=== PATIENT | female | born 1950 | race Caucasian/White ===

== ENCOUNTER 2020-07-18 11:57 | Inpatient (IN) ==
[2020-07-18] MEDS ORDERED: Isovue-370 500 ML BOTTLE IVP ONE (12:10)
[2020-07-18] MEDS ORDERED: Morphine Sulfate 2 MG/ML SYRINGE IVP STA (12:12)
[2020-07-18 12:31] LABS: Basophils % 0.1 %; Eosinophils % 0.1 %; Hematocrit 24.2 % (35.3-44.9); Hemoglobin 7.5 g/dL (11.5-15.4); Immature Granulocytes % 0.5 % (0-4); Lymphocytes # 0.6 K/mcL (0.6-4.6); Lymphocytes % 6.3 %; Mean Corpuscular Hemoglobin 21.4 pg (28.0-33.3); Mean Corpuscular Volume 69.1 fL (83.0-100.0); Mean Platelet Volume 8.8 fL (9.4-12.4); Monocytes # 1.5 K/mcL (0.0-1.3); Monocytes % 17.5 %; Neutrophils # 6.6 K/mcL (1.6-8.9); Nucleated Red Blood Cells 1.2 /100 WBC (0); Platelet Count 309 K/mcL (140-400); Red Cell Distribution Width 18.8 % (11.5-14.5); Segmented Neutrophils % 75.5 %; White Blood Count 8.7 K/mcL (4.3-11.1)
[2020-07-18 12:54] LABS: Dohle Bodies Present (Not Present); Platelet Estimate Normal (Normal); Toxic Granulation Present (Not Present)
[2020-07-18 12:57] LABS: Alanine Aminotransferase 11 Units/L (7-52); Albumin 2.8 g/dL (3.5-5.7); Albumin/Globulin Ratio 0.8 (1.1-2.2); Alkaline Phosphatase 133 Units/L (34-104); Amylase 13 Units/L (29-103); Aspartate Amino Transferase 21 Units/L (13-39); BUN/Creatinine Ratio 75 (6-26); Bilirubin,Direct 0.4 mg/dL (0.0-0.2); Bilirubin,Indirect 0.5 mg/dL (0.0-1.0); Bilirubin,Total 0.9 mg/dL (0.3-1.0); Blood Urea Nitrogen 40 mg/dL (8-23); Calcium 9.1 mg/dL (8.6-10.3); Carbon Dioxide 25 mEq/L (23-29); Chloride 96 mEq/L (98-107); Globulin 3.7 g/dL (2.4-3.5); Glucose 115 mg/dL (70-105); Lipase 3 Units/L (11-82); Osmolality,Calculated 283 (280-300); Potassium 3.7 mEq/L (3.5-5.1); Sodium 131 mEq/L (136-145); Total Protein 6.5 g/dL (6.4-8.9); Troponin I < 0.03 ng/mL (< 0.04); eGFR For African Americans > 60 (> 60); eGFR For Non-African Americans > 60 (> 60)
[2020-07-18] MEDS ORDERED: 0.9 % Sodium Chloride 1,000 ML IV ONE (13:45)
[2020-07-18 14:07] LABS: Bacteria,Urine Moderate per hpf (None-Few); Bilirubin,Urine Negative (Negative); Blood,Urine Trace (Negative); Clarity,Urine Turbid (Clear); Color,Urine Yellow (Yellow); Glucose,Urine (UA) Normal (Normal); Hyaline Casts,Urine Moderate per lpf (None Seen); Ketones,Urine Trace mg/dL (Negative); Leukocyte Esterase,Urine Large (Negative); Mucus,Urine Few per lpf (None-Few); Nitrite,Urine Positive (Negative); Protein,Urine 50 mg/dL (Neg-Trace); Specific Gravity,Urine > 1.030 (1.010-1.025); Squamous Epithelial Cell,Urine Few per hpf (None-Few); Urobilinogen,Urine Normal (Normal); WBC,Urine 15-30 per hpf (0-3)
[2020-07-18] MEDS ORDERED: 0.9 % Sodium Chloride 1,000 ML IVC ONE (14:29)
[2020-07-18] MEDS ORDERED: *HR* HYDROmorphone (PF) 1 MG/ML SYRINGE IVP ONE (14:30)
[2020-07-18] MEDS ORDERED: cefTRIAXone 1,000 MG in Water for inj. (sterile) 10 ML IVP ONE (14:43)
[2020-07-18] MEDS ORDERED: Naloxone 0.4 MG/ML INJ IVP PRN (15:41)
[2020-07-18] MEDS ORDERED: *HR* HYDROmorphone 2 MG/ML SYRINGE IVP ONE (15:44)
[2020-07-18] MEDS ORDERED: Ipratropium/Albuterol Neb 3 ML IH PRN (15:51)
[2020-07-18] MEDS ORDERED: Acetaminophen 325 MG TABLET PO PRN (15:51)
[2020-07-18] MEDS ORDERED: Ringers Solution, Lactated 1,000 ML IVC SCH (16:00)
[2020-07-18] MEDS ORDERED: Dextrose Gel 15 GM/37.5 ML TUBE PO PRN ×2 (16:52)
[2020-07-18] MEDS ORDERED: D5% in Water 1,000 ML IVC PRN (16:52)
[2020-07-18] MEDS ORDERED: *HR* Dextrose 50 % in Water (Vial) 50 ML VIAL IVP PRN (16:52)
[2020-07-18] MEDS ORDERED: Iron Sucrose Complex 400 MG in 0.9 % Sodium Chloride 250 ML IVPB ONE (17:21)
[2020-07-18] MEDS: Budesonide/Formoterol 160/4.5 1 PUFF INH IH SCH (20:12)
[2020-07-18] MEDS: *HR* OxyCODONE Immed Rel 5 MG TABLET PO PRN (20:35)
[2020-07-18 21:47] LABS: Estimated Average Glucose 137 mg/dl; Hemoglobin A1C 6.4 %
[2020-07-19] MEDS ORDERED: DilTIAZem 50 MG/50 ML IV.SOLN IVC SCH (02:15)
[2020-07-19] MEDS ORDERED: 0.9 % Sodium Chloride 1,000 ML IVC SCH ×2 (02:15)
[2020-07-19] MEDS ORDERED: *HR* Heparin 5,000 UNIT/ML VIAL IVP PRN ×2 (02:29)
[2020-07-19] MEDS ORDERED: *HR* Heparin 5,000 UNIT/ML VIAL IVP ONE (02:29)
[2020-07-19] MEDS ORDERED: Heparin 25,000UNIT/250ML 1/2NS 25,000 UNIT/250 ML IV.SOLN IVC SCH (02:30)
[2020-07-19 03:17] LABS: Hematocrit 22.1 % (35.3-44.9); Hemoglobin 6.9 g/dL (11.5-15.4); Mean Corpuscular HGB Conc 31.2 g/dL (31.6-35.5); Mean Corpuscular Hemoglobin 21.9 pg (28.0-33.3); Mean Corpuscular Volume 70.2 fL (83.0-100.0); Mean Platelet Volume 9.1 fL (9.4-12.4); Nucleated Red Blood Cells 0.6 /100 WBC (0); Platelet Count 282 K/mcL (140-400); Red Blood Count 3.15 M/mcL (3.82-4.97); White Blood Count 7.1 K/mcL (4.3-11.1)
[2020-07-19 03:26] LABS: INR 1.6; Prothrombin Time 18.5 Seconds (9.4-12.1)
[2020-07-19 03:29] LABS: Heparin anti-factor XA UFH < 0.04 IU/mL (0.30-0.70)
[2020-07-19] MEDS: Ondansetron 4 MG/2 ML VIAL IVP PRN (03:30)
[2020-07-19 03:36] LABS: Lymphocytes # 0.4 K/mcL (0.6-4.6); Monocytes # 0.3 K/mcL (0.0-1.3)
[2020-07-19 03:37] LABS: Anisocytosis 1+ (Not Present); Hypochromasia Present (Not Present); Platelet Estimate Normal (Normal); Poikilocytosis 1+ (Not Present); Toxic Granulation Present (Not Present)
[2020-07-19 03:39] LABS: Alanine Aminotransferase 9 Units/L (7-52); Albumin 2.5 g/dL (3.5-5.7); Albumin/Globulin Ratio 0.7 (1.1-2.2); Alkaline Phosphatase 93 Units/L (34-104); Aspartate Amino Transferase 18 Units/L (13-39); BUN/Creatinine Ratio 57 (6-26); Bilirubin,Total 0.6 mg/dL (0.3-1.0); Blood Urea Nitrogen 27 mg/dL (8-23); Calcium 8.6 mg/dL (8.6-10.3); Carbon Dioxide 21 mEq/L (23-29); Chloride 103 mEq/L (98-107); Globulin 3.4 g/dL (2.4-3.5); Glucose 86 mg/dL (70-105); Iron 306 mcg/dL (50-170); Magnesium 1.9 mg/dL (1.6-2.6); Osmolality,Calculated 284 (280-300); Potassium 3.4 mEq/L (3.5-5.1); Sodium 135 mEq/L (136-145); Total Protein 5.9 g/dL (6.4-8.9); eGFR For African Americans > 60 (> 60); eGFR For Non-African Americans > 60 (> 60)
[2020-07-19 03:56] LABS: Ferritin 549 ng/mL (10-120)
[2020-07-19 04:03] LABS: Vitamin B12 > 1500 pg/mL (250-1100)
[2020-07-19 04:44] LABS: % Iron Saturation 182 % (15-50); Transferrin 120 mg/dL (203-362)
[2020-07-19] MEDS ORDERED: Potassium Phosphate 44 MEQ in 0.9 % Sodium Chloride 250 ML IVPB ONE (07:00)
[2020-07-19] MEDS ORDERED: 0.9 % Sodium Chloride 250 ML ONE (07:23)
[2020-07-19] MEDS: Multivit/Ca/Min/Fe/FA 1 TAB TABLET PO SCH ×2 (07:54→08:10)
[2020-07-19] MEDS: Budesonide/Formoterol 160/4.5 1 PUFF INH IH SCH ×2 (09:30→19:31)
[2020-07-19] MEDS: *HR* OxyCODONE Immed Rel 5 MG TABLET PO PRN ×2 (10:58→20:00)
[2020-07-19] MEDS: *HR* HYDROmorphone 2 MG/ML SYRINGE IVP PRN ×3 (14:27→23:00)
[2020-07-19] MEDS ORDERED: Glycerin RECTAL Suppository RC ONE (18:06)
[2020-07-19 19:59] LABS: Hematocrit 23.6 % (35.3-44.9); Hemoglobin 7.4 g/dL (11.5-15.4)
[2020-07-19 20:23] LABS: Lactate Dehydrogenase 234 Units/L (140-271)
[2020-07-19] MEDS: polyethylene glycoL 3350 17 GM POWD.PACK PO SCH (20:34)
[2020-07-19] MEDS: cefTRIAXone 1,000 MG in Water for inj. (sterile) 10 ML IVP SCH (21:10)
[2020-07-20] MEDS: *HR* LORazepam 0.5 MG TABLET PO PRN ×3 (00:53→19:34)
[2020-07-20] MEDS: *HR* OxyCODONE Immed Rel 5 MG TABLET PO PRN ×3 (00:53→09:36)
[2020-07-20] MEDS: Melatonin 3 MG TABLET PO PRN ×2 (00:53→19:34)
[2020-07-20] MEDS: Ondansetron 4 MG/2 ML VIAL IVP PRN ×3 (00:54→21:45)
[2020-07-20] MEDS: *HR* HYDROmorphone 2 MG/ML SYRINGE IVP PRN ×3 (02:46→11:47)
[2020-07-20 04:33] LABS: Hematocrit 23.3 % (35.3-44.9); Hemoglobin 7.3 g/dL (11.5-15.4); Mean Corpuscular HGB Conc 31.3 g/dL (31.6-35.5); Mean Corpuscular Hemoglobin 22.8 pg (28.0-33.3); Mean Corpuscular Volume 72.8 fL (83.0-100.0); Mean Platelet Volume 9.2 fL (9.4-12.4); Nucleated Red Blood Cells 0.8 /100 WBC (0); Platelet Count 166 K/mcL (140-400); Red Cell Distribution Width 20.9 % (11.5-14.5)
[2020-07-20 04:53] LABS: Alanine Aminotransferase 11 Units/L (7-52); Albumin 2.5 g/dL (3.5-5.7); Albumin/Globulin Ratio 0.8 (1.1-2.2); Alkaline Phosphatase 119 Units/L (34-104); Aspartate Amino Transferase 21 Units/L (13-39); BUN/Creatinine Ratio 42 (6-26); Bilirubin,Total 1.1 mg/dL (0.3-1.0); Blood Urea Nitrogen 18 mg/dL (8-23); Calcium 8.9 mg/dL (8.6-10.3); Carbon Dioxide 23 mEq/L (23-29); Chloride 101 mEq/L (98-107); Globulin 3.1 g/dL (2.4-3.5); Glucose 106 mg/dL (70-105); Magnesium 1.7 mg/dL (1.6-2.6); Osmolality,Calculated 278 (280-300); Phosphorous 1.9 mg/dL (2.7-4.5); Potassium 3.3 mEq/L (3.5-5.1); Sodium 133 mEq/L (136-145); Total Protein 5.6 g/dL (6.4-8.9); eGFR For African Americans > 60 (> 60); eGFR For Non-African Americans > 60 (> 60)
[2020-07-20 04:56] LABS: Anisocytosis 3+ (Not Present); Microcytosis Present (Not Present); Monocytes # 1.6 K/mcL (0.0-1.3); Neutrophils # 9.9 K/mcL (1.6-8.9); Platelet Estimate Normal (Normal); Toxic Granulation Present (Not Present)
[2020-07-20 04:57] LABS: Polychromasia 1+ (Not Present)
[2020-07-20] MEDS: Budesonide/Formoterol 160/4.5 1 PUFF INH IH SCH ×2 (07:50→20:10)
[2020-07-20] MEDS: Multivit/Ca/Min/Fe/FA 1 TAB TABLET PO SCH (08:14)
[2020-07-20] MEDS: cefTRIAXone 1,000 MG in Water for inj. (sterile) 10 ML IVP SCH (08:15)
[2020-07-20] MEDS: polyethylene glycoL 3350 17 GM POWD.PACK PO SCH ×2 (08:16→19:42)
[2020-07-20] MEDS ORDERED: Potassium Phosphate 44 MEQ in 0.9 % Sodium Chloride 250 ML IVPB ONE (08:54)
[2020-07-20] MEDS ORDERED: *HR* HYDROmorphone 2 MG/ML SYRINGE IVP PRN (12:42)
[2020-07-20] MEDS ORDERED: *HR* Metoprolol 5 MG/5 ML VIAL IVP ONE (18:38)
[2020-07-20] MEDS ORDERED: traZODone 50 MG TABLET PO PRN (18:43)
[2020-07-20] MEDS ORDERED: 0.9 % Sodium Chloride 1,000 ML IVC ONE (22:59)
[2020-07-20] MEDS ORDERED: Albumin Human 5% 12.5 GM/250 ML IV.SOLN IVPB ONE (23:00)
[2020-07-21] MEDS: DilTIAZem 50 MG/50 ML IV.SOLN IVC SCH ×3 (03:22→10:50)
[2020-07-21] MEDS ORDERED: *HR* Metoprolol 5 MG/5 ML VIAL IVP ONE ×2 (04:52→14:56)
[2020-07-21 05:39] LABS: Hematocrit 25.5 % (35.3-44.9); Hemoglobin 7.8 g/dL (11.5-15.4); Mean Corpuscular HGB Conc 30.6 g/dL (31.6-35.5); Mean Corpuscular Hemoglobin 22.7 pg (28.0-33.3); Mean Corpuscular Volume 74.3 fL (83.0-100.0); Mean Platelet Volume 9.3 fL (9.4-12.4); Nucleated Red Blood Cells 1.7 /100 WBC (0); Platelet Count 215 K/mcL (140-400); Red Blood Count 3.43 M/mcL (3.82-4.97); Red Cell Distribution Width 21.4 % (11.5-14.5); White Blood Count 16.2 K/mcL (4.3-11.1)
[2020-07-21 06:00] LABS: Alanine Aminotransferase 11 Units/L (7-52); Albumin 2.7 g/dL (3.5-5.7); Albumin/Globulin Ratio 0.8 (1.1-2.2); Alkaline Phosphatase 116 Units/L (34-104); Aspartate Amino Transferase 21 Units/L (13-39); BUN/Creatinine Ratio 55 (6-26); Blood Urea Nitrogen 23 mg/dL (8-23); Calcium 8.7 mg/dL (8.6-10.3); Carbon Dioxide 24 mEq/L (23-29); Chloride 101 mEq/L (98-107); Globulin 3.2 g/dL (2.4-3.5); Glucose 126 mg/dL (70-105); Osmolality,Calculated 285 (280-300); Phosphorous 2.1 mg/dL (2.7-4.5); Potassium 3.5 mEq/L (3.5-5.1); Sodium 135 mEq/L (136-145); Total Protein 5.9 g/dL (6.4-8.9); eGFR For African Americans > 60 (> 60); eGFR For Non-African Americans > 60 (> 60)
[2020-07-21 06:14] LABS: Polychromasia 2+ (Not Present)
[2020-07-21 06:16] LABS: Anisocytosis 1+ (Not Present); Lymphocytes # 1.3 K/mcL (0.6-4.6); Neutrophils # 12.3 K/mcL (1.6-8.9)
[2020-07-21 06:17] LABS: Hypochromasia Present (Not Present); Platelet Estimate Normal (Normal); Poikilocytosis 1+ (Not Present); Toxic Granulation Present (Not Present)
[2020-07-21 07:53] LABS: ABG Base Excess 1 mEq/L (-2 to 3); ABG HCO3 24 mEq/L (21-27); ABG Oxygen Saturation 94 % (95-98); ABG PCO2 29 mmHg (35-45); ABG PH 7.52 pH Units (7.32-7.45); ABG PO2 60 mmHg (85-104); ABG TCO2 25 mEq/L (20-26)
[2020-07-21] MEDS ORDERED: Isovue-370 500 ML BOTTLE IVP ONE (07:55)
[2020-07-21] MEDS ORDERED: Potassium Phosphate 44 MEQ in 0.9 % Sodium Chloride 250 ML IVPB ONE (07:59)
[2020-07-21] MEDS ORDERED: *HR* Digoxin 0.25 MG TABLET PO STA ×2 (08:29)
[2020-07-21] MEDS ORDERED: *HR* Digoxin 0.125 MG TABLET PO STA (08:36)
[2020-07-21] MEDS ORDERED: Piperacillin/Tazobactam 3.375 GM in 0.9 % Sodium Chloride Mini Bag 100 ML IVPB ONE (08:40)
[2020-07-21] MEDS: Budesonide/Formoterol 160/4.5 1 PUFF INH IH SCH ×2 (09:34→19:38)
[2020-07-21] MEDS: Ondansetron 4 MG/2 ML VIAL IVP PRN (11:48)
[2020-07-21] MEDS ORDERED: *HR* FentaNYL PATCH 12 MCG PATCH TD SCH (12:00)
[2020-07-21] MEDS: polyethylene glycoL 3350 17 GM POWD.PACK PO SCH ×3 (12:50→21:24)
[2020-07-21] MEDS: Multivit/Ca/Min/Fe/FA 1 TAB TABLET PO SCH (12:50)
[2020-07-21] MEDS ORDERED: *HR* Digoxin 0.25 MG TABLET PO SCH (14:00)
[2020-07-21] MEDS ORDERED: *HR* Digoxin 0.5 MG/2 ML AMPUL IVP ONE ×2 (14:55→21:00)
[2020-07-21] MEDS: *HR* LORazepam 2 MG/ML VIAL IVP PRN (15:28)
[2020-07-21] MEDS: Ondansetron 4 MG/2 ML VIAL IVP SCH ×2 (15:51→16:02)
[2020-07-21] MEDS: Piperacillin/Tazobactam 3.375 GM in 0.9 % Sodium Chloride Mini Bag 100 ML IVPB SCH (17:44)
[2020-07-21] MEDS: Ipratropium/Albuterol Neb 3 ML IH SCH (19:38)
[2020-07-21] MEDS ORDERED: Acetaminophen IV 1,000 MG/100 ML BAG IVPB ONE (20:32)
[2020-07-22] MEDS: *HR* LORazepam 2 MG/ML VIAL IVP PRN ×2 (00:10→22:26)
[2020-07-22] MEDS: Ipratropium/Albuterol Neb 3 ML IH SCH ×7 (00:31→23:39)
[2020-07-22] MEDS: Ondansetron 4 MG/2 ML VIAL IVP SCH ×3 (01:31→16:40)
[2020-07-22] MEDS: Piperacillin/Tazobactam 3.375 GM in 0.9 % Sodium Chloride Mini Bag 100 ML IVPB SCH ×3 (01:32→20:26)
[2020-07-22 05:26] LABS: Hematocrit 26.4 % (35.3-44.9); Hemoglobin 8.2 g/dL (11.5-15.4); Mean Corpuscular HGB Conc 31.1 g/dL (31.6-35.5); Mean Corpuscular Hemoglobin 23.2 pg (28.0-33.3); Mean Corpuscular Volume 74.8 fL (83.0-100.0); Mean Platelet Volume 9.7 fL (9.4-12.4); Nucleated Red Blood Cells 0.9 /100 WBC (0); Platelet Count 246 K/mcL (140-400); Red Blood Count 3.53 M/mcL (3.82-4.97); White Blood Count 14.8 K/mcL (4.3-11.1)
[2020-07-22 05:47] LABS: Lymphocytes # 1.8 K/mcL (0.6-4.6); Monocytes # 0.9 K/mcL (0.0-1.3); Neutrophils # 10.1 K/mcL (1.6-8.9); Platelet Estimate Normal (Normal); Toxic Granulation Present (Not Present)
[2020-07-22 05:48] LABS: Anisocytosis 1+ (Not Present); Poikilocytosis 1+ (Not Present); Polychromasia 1+ (Not Present)
[2020-07-22 05:50] LABS: Alanine Aminotransferase 11 Units/L (7-52); Albumin 2.4 g/dL (3.5-5.7); Albumin/Globulin Ratio 0.8 (1.1-2.2); Alkaline Phosphatase 117 Units/L (34-104); Aspartate Amino Transferase 25 Units/L (13-39); BUN/Creatinine Ratio 40 (6-26); Blood Urea Nitrogen 17 mg/dL (8-23); Calcium 8.2 mg/dL (8.6-10.3); Carbon Dioxide 22 mEq/L (23-29); Chloride 107 mEq/L (98-107); Globulin 2.9 g/dL (2.4-3.5); Glucose 78 mg/dL (70-105); Magnesium 1.9 mg/dL (1.6-2.6); Osmolality,Calculated 288 (280-300); Phosphorous 2.9 mg/dL (2.7-4.5); Potassium 3.5 mEq/L (3.5-5.1); Sodium 139 mEq/L (136-145); Total Protein 5.3 g/dL (6.4-8.9); eGFR For African Americans > 60 (> 60); eGFR For Non-African Americans > 60 (> 60)
[2020-07-22] MEDS: Budesonide/Formoterol 160/4.5 1 PUFF INH IH SCH ×2 (07:53→19:26)
[2020-07-22] MEDS ORDERED: *HR* Digoxin 0.25 MG TABLET PO SCH (09:00)
[2020-07-22] MEDS ORDERED: Potassium Phosphate 44 MEQ in 0.9 % Sodium Chloride 250 ML IVPB ONE (09:13)
[2020-07-22] MEDS ORDERED: Perflutren Lipid Microsphere 1.3 ML in 0.9 % Sodium Chloride 8.7 ML IVP PRN (09:22)
[2020-07-22] MEDS: polyethylene glycoL 3350 17 GM POWD.PACK PO SCH ×2 (09:59→21:01)
[2020-07-22] MEDS: Multivit/Ca/Min/Fe/FA 1 TAB TABLET PO SCH (09:59)
[2020-07-22] MEDS: Calcium Gluconate 1gm/50mL 1 GM/50 ML BAG IVPB SCH ×2 (09:59→11:23)
[2020-07-22] MEDS ORDERED: traZODone 50 MG TABLET PO PRN (16:15)
[2020-07-22] MEDS ORDERED: Saline Nasal Spray 44 ML BOTTLE NS PRN (16:15)
[2020-07-22] MEDS ORDERED: *HR* Metoprolol 5 MG/5 ML VIAL IVP ONE (20:02)
[2020-07-22] MEDS: Artificial Tears SOLN 15 ML BOTTLE BOTH EYES SCH (21:01)
[2020-07-22] MEDS: Sennosides/Docusate Sodium TABLET PO SCH (22:31)
[2020-07-23] MEDS: Ondansetron 4 MG/2 ML VIAL IVP SCH ×2 (01:29→08:18)
[2020-07-23 02:31] LABS: Hemoglobin 8.7 g/dL (11.5-15.4); Mean Corpuscular HGB Conc 31.1 g/dL (31.6-35.5); Mean Corpuscular Hemoglobin 23.8 pg (28.0-33.3); Mean Corpuscular Volume 76.7 fL (83.0-100.0); Mean Platelet Volume 9.7 fL (9.4-12.4); Platelet Count 291 K/mcL (140-400); Red Blood Count 3.65 M/mcL (3.82-4.97); Red Cell Distribution Width 25.2 % (11.5-14.5); White Blood Count 15.5 K/mcL (4.3-11.1)
[2020-07-23 02:48] LABS: BUN/Creatinine Ratio 33 (6-26); Blood Urea Nitrogen 14 mg/dL (8-23); Carbon Dioxide 22 mEq/L (23-29); Chloride 104 mEq/L (98-107); Glucose 57 mg/dL (70-105); Magnesium 1.9 mg/dL (1.6-2.6); Osmolality,Calculated 284 (280-300); Potassium 3.5 mEq/L (3.5-5.1); Sodium 138 mEq/L (136-145); eGFR For African Americans > 60 (> 60); eGFR For Non-African Americans > 60 (> 60)
[2020-07-23] MEDS: Ipratropium/Albuterol Neb 3 ML IH SCH ×3 (03:34→11:50)
[2020-07-23] MEDS ORDERED: Amiodarone Premix 360 MG/200 ML BAG IVC ONE (04:33)
[2020-07-23] MEDS ORDERED: Amiodarone Premix 150 MG/100 ML BAG IVPB ONE (04:33)
[2020-07-23] MEDS: Piperacillin/Tazobactam 3.375 GM in 0.9 % Sodium Chloride Mini Bag 100 ML IVPB SCH ×2 (05:07→15:12)
[2020-07-23 07:10] VITALS: BP 96/71
[2020-07-23] MEDS: Multivit/Ca/Min/Fe/FA 1 TAB TABLET PO SCH (08:18)
[2020-07-23] MEDS: Artificial Tears SOLN 15 ML BOTTLE BOTH EYES SCH (08:27)
[2020-07-23] MEDS: Sennosides/Docusate Sodium TABLET PO SCH (08:28)
[2020-07-23] MEDS: polyethylene glycoL 3350 17 GM POWD.PACK PO SCH (08:31)
[2020-07-23] MEDS ORDERED: *HR* Digoxin 0.125 MG TABLET PO SCH (09:00)
[2020-07-23] MEDS ORDERED: *HR* Digoxin 0.25 MG TABLET PO SCH (09:00)
[2020-07-23] MEDS ORDERED: polyethylene glycoL 3350 17 GM POWD.PACK PO SCH (09:00)
[2020-07-23] MEDS ORDERED: Haloperidol Oral Conc 10 MG/5 ML UDC PO PRN (10:00)
[2020-07-23] MEDS: Budesonide/Formoterol 160/4.5 1 PUFF INH IH SCH (10:06)
== END 2020-07-23 15:42 | disposition hospice, home (50) | DRG 374 ==
LOC: 3ANU 11:57 → EMEROOARM 11:57 → SUATTDRO 15:10 → 3ANU 16:51 → 2NENU 07-21 08:29
PROVIDERS: ADMIT Internal Medicine; ATTEND Internal Medicine